=== PATIENT | female | born 1955 | race Caucasian/White ===

== ENCOUNTER 2020-12-22 14:38 | Outpatient (REF) | payer MEDICARE, MEDICAID, SELFPAY ==
[2020-12-22 15:34] LABS: MANUAL DIFF FLAG NO
[2020-12-22 15:39] LABS: Basophils Percent Auto 0.4 % (0-2); Eosinophils Absolute Auto 0.2 X10*3/uL (0.0-0.4); Hemoglobin 15.6 g/dl (12.0-16.0); Imm Gran Abs Auto 0.01 X10*3/uL (0.00-0.03); Imm Gran Pct Auto 0.2 % (0.0-0.4); Lymphocytes Absolute Auto 1.5 X10*3/uL (1.2-4.9); Lymphocytes Percent Auto 27.4 % (20-40); Mean Corpuscular HGB Conc 32.5 g/dl (31.0-35.0); Mean Corpuscular Hemoglobin 33.1 pg (27.0-33.0); Mean Corpuscular Volume 101.9 fL (80-98); Mean Platelet Volume 9.2 fL (9.4-12.3); Monocytes Absolute Auto 0.7 X10*3/uL (0.1-1.2); Monocytes Percent Auto 11.6 % (2-11); Neutrophils Absolute Auto 3.2 X10*3/uL (2.0-8.3); Neutrophils Percent Auto 57.4 % (45-73); Platelet Count 264 X10*3/uL (160-400); Red Blood Count 4.71 X10*6/uL (4.20-5.50); Red Cell Distribution Width 11.8 % (11.0-16.0); White Blood Count 5.6 X10*3/uL (4.8-10.8)
[2020-12-22 16:03] LABS: Alanine Aminotransferase 18 U/L (0-31); Albumin Level 4.4 g/dL (3.5-5.0); Alkaline Phosphatase 67 U/L (39-117); Aspartate Amino Transferase 19 U/L (5-31); Bilirubin Total 0.4 mg/dL (0.0-1.0); Blood Urea Nitrogen 16 mg/dL (9-16); Calcium 9.6 mg/dL (8.4-10.2); Estimated Glomerular Filt Rate > 60; Glucose Random 106 mg/dL (60-115); Total Protein 6.9 g/dL (6.5-8.0)
[2020-12-22 16:18] LABS: Anion Gap 12 (12-20); Carbon Dioxide 34 mmol/L (22-29); Chloride 99 mmol/L (96-108); Potassium 4.3 mmol/L (3.3-5.1); Sodium 141 mmol/L (135-145)
== END 2020-12-22 14:39 | disposition home or self-care (01) ==
LOC: HO.LAB 14:38
PROVIDERS: PCP Internal Medicine; Visit Provider Internal Medicine
DX: J44.9 Chronic obstructive pulmonary disease, unspecified (principal); I10 Essential (primary) hypertension; E78.00 Pure hypercholesterolemia, unspecified
CPT/HCPCS: 36415; 80053; 85025

== ENCOUNTER 2022-01-07 14:15 | Outpatient (REF) | payer MEDICARE, MEDICAID, SELFPAY ==
--- NOTE | ~2022-01-07 | XR_ITS ---
EXAMINATION: XR LUMBOSACRAL SPINE CLINICAL INFORMATION: Back pain COMPARISON: CT abdomen and pelvis 03/13/2020, radiographs lumbar spine 04/09/2018 TECHNIQUE: Three views of the lumbosacral spine. FINDINGS: There is prominent levocurvature lumbar spine with multilevel degenerative disc changes similar to prior exams. There is disc narrowing at all 5 levels with associated endplate sclerosis and vertebral spurring. There is no anterior spondylolisthesis or retrolisthesis. No vertebral compression or destructive process. There is variable facet degeneration again seen throughout the lumbar spine. XR/XR lumbar spine 2-3V IMPRESSION: Multilevel degenerative disc and degenerative facet changes with prominent levocurvature similar to prior exams. No vertebral compression or destructive process.
[2022-01-07 15:01] LABS: C Reactive Protein 0.23 mg/dL (< or = 0.50)
[2022-01-07 15:25] LABS: T4 Thyroxine 6.1 ug/dL (4.5-12.0)
[2022-01-07 15:48] LABS: Folate > 20.0 ng/mL (> or = 4.0); Vitamin B12 324 pg/mL (200-900)
== END 2022-01-07 14:16 | disposition home or self-care (01) ==
LOC: HO.LAB 14:15
PROVIDERS: PCP Internal Medicine; Visit Provider Internal Medicine
DX: M54.9 Dorsalgia, unspecified (principal); J44.9 Chronic obstructive pulmonary disease, unspecified; R26.81 Unsteadiness on feet
CPT/HCPCS: 36415; 72100; 82607; 82746; 84436; 86140

== ENCOUNTER 2022-05-14 15:43 | Outpatient (REF) | payer MEDICARE, MEDICAID, SELFPAY ==
--- NOTE | ~2022-05-14 | XR_ITS ---
EXAMINATION: XR CERVICAL SPINE CLINICAL INFORMATION: Neck pain COMPARISON: None TECHNIQUE: 7 views of the cervical spine FINDINGS: No acute visible fracture or dislocation. Straightening of normal cervical curvature which may be secondary to patient motion first and most. Slight levocurvature along the upper thoracic spine. Multilevel neuroforaminal narrowing. Moderate multilevel degenerative changes with disc space narrowing, endplate sclerosis, osteophyte formation, and facet arthropathy. Vertebral body heights and disc spaces are maintained. Prevertebral soft tissues are unremarkable. Posterior elements are intact. Paraspinal soft tissues are unremarkable. Visualized dens is intact. Lateral masses are symmetric. Utilized portions of the upper chest are unremarkable. XR/XR cervical spine min 6V IMPRESSION: 1. No acute visible fracture or dislocation. 2. Straightening of normal cervical curvature which may be secondary to patient motion first and most. 3. Slight levocurvature along the upper thoracic spine. 4. Multilevel neuroforaminal narrowing. 5. Moderate multilevel degenerative changes.
[2022-05-14 15:55] LABS: MANUAL DIFF FLAG NO
[2022-05-14 16:10] LABS: Basophils Percent Auto 0.3 % (0-2); Eosinophils Absolute Auto 0.1 X10*3/uL (0.0-0.4); Eosinophils Percent Auto 1.5 % (0-4); Hematocrit 48.2 % (37.0-47.0); Hemoglobin 15.7 g/dl (12.0-16.0); Imm Gran Abs Auto 0.02 X10*3/uL (0.00-0.03); Imm Gran Pct Auto 0.3 % (0.0-0.4); Lymphocytes Absolute Auto 1.7 X10*3/uL (1.2-4.9); Lymphocytes Percent Auto 27.1 % (20-40); Mean Corpuscular HGB Conc 32.6 g/dl (31.0-35.0); Mean Corpuscular Hemoglobin 33.1 pg (27.0-33.0); Mean Corpuscular Volume 101.7 fL (80.0-98.0); Monocytes Absolute Auto 0.7 X10*3/uL (0.1-1.2); Monocytes Percent Auto 11.2 % (2-11); Neutrophils Absolute Auto 3.6 x10*3/uL (2.0-8.3); Neutrophils Percent Auto 59.6 % (45-73); Platelet Count 251 X10*3/uL (160-400); Red Blood Count 4.74 X10*6/uL (4.20-5.50); Red Cell Distribution Width 11.9 % (11.0-16.0); White Blood Count 6.1 X10*3/uL (4.8-10.8)
[2022-05-14 16:38] LABS: Alanine Aminotransferase 17 U/L (0-31); Albumin Level 4.2 g/dL (3.5-5.0); Alkaline Phosphatase 66 U/L (39-117); Anion Gap 12 (12-20); Aspartate Amino Transferase 20 U/L (5-31); Bilirubin Total 0.3 mg/dL (0.0-1.0); Blood Urea Nitrogen 15 mg/dL (9-16); Calcium 9.3 mg/dL (8.4-10.2); Carbon Dioxide 30 mmol/L (22-29); Chloride 102 mmol/L (96-108); Cholesterol 242 mg/dL; Estimated Glomerular Filt Rate > 60; Glucose Random 102 mg/dL (60-115); Potassium 4.6 mmol/L (3.3-5.1); Sodium 139 mmol/L (135-145); Total Protein 6.5 g/dL (6.5-8.0)
== END 2022-05-14 15:44 | disposition home or self-care (01) ==
LOC: HO.XRAY 15:43
PROVIDERS: PCP Internal Medicine; Visit Provider Internal Medicine
DX: J44.9 Chronic obstructive pulmonary disease, unspecified (principal); M19.90 Unspecified osteoarthritis, unspecified site; I10 Essential (primary) hypertension; E78.00 Pure hypercholesterolemia, unspecified
CPT/HCPCS: 36415; 72052; 80053; 82465; 85025

== ENCOUNTER 2022-09-09 15:20 | Outpatient (REF) | payer MEDICARE, MEDICAID, SELFPAY ==
--- NOTE | ~2022-09-09 | XR_ITS ---
EXAMINATION: XR FOREARM, LEFT CLINICAL INFORMATION: Pain. COMPARISON: None TECHNIQUE: AP and lateral views of the left forearm were obtained. FINDINGS: The bones and soft tissues are normal. No fracture. Imaged portions of the elbow and wrist are unremarkable. XR/XR forearm LT 2V IMPRESSION: Normal left forearm.
== END 2022-09-09 15:21 | disposition home or self-care (01) ==
LOC: HO.XRAY 15:20
PROVIDERS: PCP Internal Medicine; Visit Provider Internal Medicine
DX: M79.632 Pain in left forearm (principal)
CPT/HCPCS: 73090

== ENCOUNTER 2023-05-20 07:41 | Outpatient (REF) | payer MEDICARE, MEDICAID, SELFPAY ==
[2023-05-20 08:00] LABS: MANUAL DIFF FLAG NO
[2023-05-20 08:43] LABS: Basophils Absolute Auto 0.1 X10*3/uL (0.0-0.2); Basophils Percent Auto 0.8 % (0-2); Eosinophils Absolute Auto 0.2 X10*3/uL (0.0-0.4); Eosinophils Percent Auto 2.8 % (0-4); Hematocrit 49.9 % (37.0-47.0); Hemoglobin 15.8 g/dl (12.0-16.0); Imm Gran Abs Auto 0.01 X10*3/uL (0.00-0.03); Imm Gran Pct Auto 0.2 % (0.0-0.4); Lymphocytes Absolute Auto 1.8 X10*3/uL (1.2-4.9); Lymphocytes Percent Auto 28.7 % (20-40); Mean Corpuscular HGB Conc 31.7 g/dl (31.0-35.0); Mean Corpuscular Hemoglobin 32.8 pg (27.0-33.0); Mean Corpuscular Volume 103.7 fL (80.0-98.0); Mean Platelet Volume 9.2 fL (9.4-12.3); Monocytes Absolute Auto 0.5 X10*3/uL (0.1-1.2); Neutrophils Absolute Auto 3.8 x10*3/uL (2.0-8.3); Neutrophils Percent Auto 59.5 % (45-73); Platelet Count 266 X10*3/uL (160-400); Red Blood Count 4.81 X10*6/uL (4.20-5.50); Red Cell Distribution Width 11.9 % (11.0-16.0); White Blood Count 6.4 X10*3/uL (4.8-10.8)
[2023-05-20 09:16] LABS: Alanine Aminotransferase 17 U/L (0-31); Albumin Level 4.5 g/dL (3.5-5.0); Alkaline Phosphatase 61 U/L (39-117); Anion Gap 14 (12-20); Aspartate Amino Transferase 21 U/L (5-31); Bilirubin Total 0.5 mg/dL (0.0-1.0); Blood Urea Nitrogen 21 mg/dL (9-16); Calcium 9.8 mg/dL (8.4-10.2); Carbon Dioxide 35 mmol/L (22-29); Chloride 97 mmol/L (96-108); Cholesterol 250 mg/dL; Estimated Glomerular Filt Rate > 60; Glucose Fasting 95 mg/dL (60-99); HDL Cholesterol 70 mg/dL; LDL Cholesterol Calculated 164 mg/dl; Sodium 142 mmol/L (135-145); Total Protein 7.2 g/dL (6.5-8.0); Triglycerides 83 mg/dL
== END 2023-05-20 07:42 | disposition home or self-care (01) ==
LOC: HO.LAB 07:41
PROVIDERS: PCP Internal Medicine; Visit Provider Internal Medicine
DX: J44.9 Chronic obstructive pulmonary disease, unspecified (principal); E78.00 Pure hypercholesterolemia, unspecified; M19.90 Unspecified osteoarthritis, unspecified site
CPT/HCPCS: 36415; 80053; 80061; 85025

== ENCOUNTER 2023-05-27 15:53 | Outpatient (REF) | payer MEDICARE, MEDICAID, SELFPAY ==
--- NOTE | ~2023-05-27 | XR_ITS ---
EXAMINATION: XR HIP, LEFT CLINICAL INFORMATION: Pain. COMPARISON: None available. TECHNIQUE: AP and frog-leg lateral views of the left hip. FINDINGS: No fracture. Alignment is anatomic. Hip joint space is maintained. Soft tissues are unremarkable. XR/XR hip LT min 2V IMPRESSION: Normal left hip.
== END 2023-05-27 15:54 | disposition home or self-care (01) ==
LOC: HO.XRAY 15:53
PROVIDERS: PCP Internal Medicine; Visit Provider Internal Medicine
DX: M25.552 Pain in left hip (principal)
CPT/HCPCS: 73502

== ENCOUNTER 2024-02-27 11:28 | Outpatient (REF) | payer MEDICARE, MEDICAID, SELFPAY ==
[2024-02-27 12:58] LABS: MANUAL DIFF FLAG NO
[2024-02-27 13:01] LABS: Basophils Percent Auto 0.6 % (0-2); Eosinophils Absolute Auto 0.1 X10*3/uL (0.0-0.4); Eosinophils Percent Auto 1.3 % (0-4); Hematocrit 47.5 % (37.0-47.0); Hemoglobin 15.6 g/dl (12.0-16.0); Imm Gran Abs Auto 0.01 X10*3/uL (0.00-0.03); Imm Gran Pct Auto 0.2 % (0.0-0.4); Lymphocytes Absolute Auto 1.4 X10*3/uL (1.2-4.9); Lymphocytes Percent Auto 22.6 % (20-40); Mean Corpuscular HGB Conc 32.8 g/dl (31.0-35.0); Mean Corpuscular Hemoglobin 34.2 pg (27.0-33.0); Mean Corpuscular Volume 104.2 fL (80.0-98.0); Mean Platelet Volume 9.3 fL (9.4-12.3); Monocytes Absolute Auto 0.6 X10*3/uL (0.1-1.2); Monocytes Percent Auto 9.8 % (2-11); Neutrophils Absolute Auto 4.1 x10*3/uL (2.0-8.3); Neutrophils Percent Auto 65.5 % (45-73); Platelet Count 249 X10*3/uL (160-400); Red Blood Count 4.56 X10*6/uL (4.20-5.50); Red Cell Distribution Width 11.9 % (11.0-16.0); White Blood Count 6.2 X10*3/uL (4.8-10.8)
[2024-02-27 13:23] LABS: Alanine Aminotransferase 18 U/L (0-31); Albumin Level 4.1 g/dL (3.5-5.0); Alkaline Phosphatase 60 U/L (39-117); Anion Gap 8 (12-20); Aspartate Amino Transferase 19 U/L (5-31); Bilirubin Total 0.5 mg/dL (0.0-1.0); Blood Urea Nitrogen 14 mg/dL (9-16); Calcium 9.5 mg/dL (8.4-10.2); Carbon Dioxide 39 mmol/L (22-29); Chloride 99 mmol/L (96-108); Cholesterol 237 mg/dL (<200); Estimated Glomerular Filt Rate > 60; Glucose Fasting 107 mg/dL (60-99); HDL Cholesterol 72 mg/dL (>40); LDL Cholesterol Calculated 153 mg/dL (<100); Potassium 3.9 mmol/L (3.3-5.1); Sodium 142 mmol/L (135-145); Total Protein 6.6 g/dL (6.5-8.0); Triglycerides 64 mg/dL (<150)
[2024-02-27 13:38] LABS: Vitamin D 25-OH Total 57.1 ng/mL (>30)
== END 2024-02-27 11:29 | disposition home or self-care (01) ==
LOC: HO.10HDL 11:28
PROVIDERS: Visit Provider Internal Medicine
DX: J44.9 Chronic obstructive pulmonary disease, unspecified (principal); E78.00 Pure hypercholesterolemia, unspecified; M81.0 Age-related osteoporosis without current pathological fracture
CPT/HCPCS: 36415; 80053; 80061; 82306; 85025

== ENCOUNTER 2024-09-02 15:27 | Outpatient (REF) | payer MEDICARE, MEDICAID, SELFPAY ==
--- NOTE | ~2024-09-02 | XR_ITS ---
EXAMINATION: XR CHEST CLINICAL INFORMATION: Pneumonia evaluation, cough COMPARISON: October 2019. TECHNIQUE: 2 views of the chest were obtained. FINDINGS: No airspace consolidation or pneumothorax seen. Pleural surfaces appear to be clear. Hilar regions and pulmonary vascularity appear stable. Minimal posterior sulcus linear atelectatic changes. Emphysematous change again noted. Extensive thoracic dextroscoliosis again observed. XR/XR chest 2V IMPRESSION: No dominant consolidations. Minimal posterior sulcus linear atelectatic change. Electronically signed by: Dat Jenkins MD 09/02/2024 04:45 PM EDT
[2024-09-02 19:16] LABS: Influenza A PCR NEGATIVE (Negative); Influenza B PCR NEGATIVE (Negative); Resp Syncy Virus RNA Qual PCR NEGATIVE (Negative); SARS COV2 PCR INHOUSE NEGATIVE (Negative)
== END 2024-09-02 15:28 | disposition home or self-care (01) ==
LOC: HO.XRAY 15:27
PROVIDERS: PCP Internal Medicine; Visit Provider Internal Medicine
DX: Z11.52 Encounter for screening for COVID-19 (principal); R05.9 Cough, unspecified; J44.9 Chronic obstructive pulmonary disease, unspecified; N18.9 Chronic kidney disease, unspecified
CPT/HCPCS: 0241U; 71046

== ENCOUNTER 2024-11-09 13:52 | Outpatient (REF) | payer MEDICARE, MEDICAID, SELFPAY ==
--- NOTE | ~2024-11-09 | MM_ITS ---
EXAMINATION: Dual-Energy X-ray Absorptiometry - Bone Density Study HISTORY: Estrogen deficiency TECHNIQUE: Tailwind Dual energy absorptiometry (DEXA) of the lumbar spine, total left hip, and femoral neck was performed. COMPARISON: Comparison is made with the prior examination dated 05/26/2018. FINDINGS: The bone mineral density of the lumbar spine is 1.278 with a T-score of 0.8, and a Z-score of 3.0. This represents a BMD change of 4.5% compared to the prior exam. This is statistically significant. The bone mineral density of the left total hip is 0.731 with a T-score of -2.2, and a Z-score of -0.4. This represents BMD change of -12.2% compared to the prior exam. This is statistically significant. The bone mineral density of the left femoral neck is 0.668 with a T-score of -2.7, and a Z-score of -0.6. This represents BMD change of -4.2% compared to the prior exam. FRACTURE RISK: The FRAX index suggests a ten year probability of major osteoporotic fracture of 15.7%, and of hip fracture 6.8%. MM/XR DEXA axial skeleton IMPRESSION: Based on bone mineral density, and according to World Health Organization (WHO) criteria, the diagnosis is consistent with osteoporosis. All bone density values are in grams per centimeter squared. At this facility, the least significant change in BMD with 95% confidence is 0.022 at the lumbar spine, 0.027 at the hip, and 0.023 at the distal 1/3 radius. Electronically signed by: Jimbo Demarco MD 11/10/2024 09:51 AM EST
== END 2024-11-09 13:53 | disposition home or self-care (01) ==
LOC: HO.MAMMO 13:52
PROVIDERS: PCP Internal Medicine; Visit Provider Internal Medicine
DX: Z13.820 Encounter for screening for osteoporosis (principal); Z78.0 Asymptomatic menopausal state
CPT/HCPCS: 77080

== ENCOUNTER → 2024-11-09 14:00 | Outpatient (BNV) | payer MEDICARE, MEDICAID, SELFPAY | PROVIDERS: PCP Internal Medicine; Visit Provider Radiology Diagnostic Radiology | DX: M81.0 Age-related osteoporosis without current pathological fracture (principal) | CPT/HCPCS: 77085 ==

== ENCOUNTER 2024-12-15 06:49 | Emergency (ER) | payer MEDICARE, MEDICAID, SELFPAY ==
--- NOTE | ~2024-12-15 | XR_ITS ---
EXAMINATION: XR RIBS, LEFT CLINICAL INFORMATION: pain COMPARISON: Chest x-ray dating 09/02/2024, and dating back to 12/11/2016 TECHNIQUE: PA chest, and 3 views left ribs. FINDINGS: The cardiac, hilar, and mediastinal contours are normal. There is aortic mural calcification. The lungs are mildly hyper aerated, with mild biapical scarring. There is a right mid to lower lung peripherally based focal opacity measuring 1.3 cm, stable from prior exams dating back to 2019. This is likely scarring. Lungs are otherwise clear. Dedicated rib views demonstrate a subtle cortical buckling of the anterolateral left fifth rib. This is age-indeterminate by appearance. There is a moderate to severe right convex thoracic scoliosis. There is degenerative spondylosis. XR/XR ribs LT min 3V w CXR1V IMPRESSION: 1. Subtle cortical buckling of the anterior right fifth rib, probable fracture of indeterminant age appearance. No additional rib fractures seen. 2. No active lung disease. COPD with chronic changes. Electronically signed by: Jet Jackson MD 12/15/2024 08:15 AM [facility]
[2024-12-15 07:00] VITALS: BP 173/89; PULSE 95; RESP 20; TEMP 36.7; O2SAT 93; BMI 20.8
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
[2024-12-15] MEDS: Acetaminophen 325 MG TABLET 650 MG PO (13:53)
[2024-12-15] MEDS: Lidocaine 4 % Patch ADH..PATCH 1 PATCH TRANSDERMA (13:53)
[2024-12-15 14:05] VITALS: BP 173/89; PULSE 95; RESP 20; TEMP 36.7; O2SAT 93
== END 2024-12-15 14:05 | disposition home or self-care (01) ==
PROVIDERS: Emergency Provider Emergency Medicine; PCP Internal Medicine
DX: S22.42XA Multiple fractures of ribs, left side, initial encounter for closed fracture (principal); R07.89 Other chest pain; J44.9 Chronic obstructive pulmonary disease, unspecified; V43.52XA Car driver injured in collision with other type car in traffic accident, initial encounter; Y93.89 Activity, other specified; Y92.488 Other paved roadways as the place of occurrence of the external cause; Y99.8 Other external cause status; F17.210 Nicotine dependence, cigarettes, uncomplicated
CPT/HCPCS: 71101; 94010; 99283

== ENCOUNTER → 2024-12-15 07:05 | Outpatient (BNV) | payer MEDICARE, MEDICAID, SELFPAY | PROVIDERS: PCP Internal Medicine; Visit Provider Radiology Diagnostic Radiology | DX: G89.11 Acute pain due to trauma (principal); Z04.1 Encounter for examination and observation following transport accident | CPT/HCPCS: 71101 ==

== ENCOUNTER 2024-12-23 14:46 | Emergency (ER) | payer OTHER, MEDICARE, MEDICAID, SELFPAY ==
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
[2024-12-23 15:38] VITALS: BP 174/72; PULSE 97; RESP 16; TEMP 36.9; O2SAT 89; BMI 20.8
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
== END 2024-12-23 19:54 | disposition left against medical advice (07) ==
PROVIDERS: Emergency Provider Emergency Medicine; PCP Internal Medicine
DX: M25.562 Pain in left knee (principal)
CPT/HCPCS: 73564; 99281; 99283

== ENCOUNTER → 2024-12-23 15:40 | Outpatient (BNV) | payer MEDICARE, MEDICAID, SELFPAY | PROVIDERS: PCP Internal Medicine; Visit Provider Radiology Diagnostic Radiology | DX: M25.562 Pain in left knee (principal); V89.2XXA Person injured in unspecified motor-vehicle accident, traffic, initial encounter | CPT/HCPCS: 73564 ==

== ENCOUNTER 2025-03-25 14:23 | Outpatient (AMB) | payer OTHER, SELFPAY ==
--- NOTE | 2025-03-25 14:27 | MHC.PC.OV ---
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 She also has chronic low back pain related to scoliosis which causes significant issues with ambulation. She has weakness in the legs and has fallen several times. She requires the use of a walker. She is also on 2 L supplemental O2 as needed for shortness of breath. Oximetry in the office today is 90%. She is also requesting shower bars. She is quite hypertensive in the office today at 162/100 and on recheck 160/94. She does have a history of elevated blood pressures though denies any history of hypertension. She reports that previously her blood pressure is were 130 systolic. We did discuss the risks of uncontrolled blood pressures including stroke as well as other cardiovascular disease. She has been following with pulmonology and incruse ellipta and albuterol. No recent exacerbation. ROS: General: No fevers, malaise, unintentional weight loss HEENT: No blurred vision, diplopia. No sore throat, nasal congestion, rhinorrhea, sinus pain, ear pain Cardiovascular: No chest pain, palpitations, or leg edema Respiratory: See HPI MSK: See HPI Neuro: No headaches, paresthesias. See HPI Skin: No rashes or lesions Exam: Constitutional - Awake and Alert, No apparent distress Eyes - PERRLA, EOMI Cardiovascular - S1S2, RRR, No edema Respiratory - Normal lung expansion, Normal respiratory effort, No respiratory distress, CTA bilaterally Extremities - no calf tenderness bilaterally, no swelling Skin - Warm/Dry Neurological - Alert & oriented x3 Psychological - Appropriate affect [facility] Medical History (Updated 03/25/25 @ 17:39 by PREET Mclean) Chronic respiratory failure COPD (chronic obstructive pulmonary disease) HTN (hypertension) HLD (hyperlipidemia) Questionnaire PHQ-9 Over the last 2 weeks, how often have you been bothered by any of the following problems? 1. Little interest or pleasure in doing things: not at all 2. Feeling down, depressed, or hopeless: not at all 3. Trouble falling or staying asleep, or sleeping too much: not at all 4. Feeling tired or having little energy: not at all 5. Poor appetite or overeating: not at all 6. Feeling bad about yourself - or that you are a failure or have let yourself or your family down: not at all 7. Trouble concentrating on things, such as reading the newspaper or watching television: not at all 8. Moving or speaking so slowly that other people could have noticed. Or the opposite - being so fidgety or restless that you have been moving around a lot more than usual: not at all 9. Thoughts that you would be better off or of hurting yourself in some way: not at all Total score: 0 Source: Developed by Drs. Jimbo Shearer, Ruby Gaffney, Rey Romero and colleagues, with an educational rosario from [employer] Thrive Questionnaire I am a: Patient What is your living situation today?: I have a steady place to live Within the past 12 months, did the food you bought not last and you didn't have the money to get more?: Never true Within the past 12 months, did you worry whether your food would run out before you got money to buy more?: Never true Do you have trouble paying for medicines?: No Do you have trouble getting transportation to medical appointments?: No Do you have trouble paying your heating and electricity bill?: No Do you have trouble taking care of your child, family member or friend?: No Do you have trouble with day-to-day activities such as bathing, preparing meals, shopping, managing finances, etc.?: No Are you currently unemployed and looking for a job?: No Are you interested in more education?: No Please select the resources that you would like help with: None THRIVE Score: 0 MILADIS-7 AMB Questionnaire MILADIS-7 Feeling nervous, anxious, or on edge: 0 = Not at all Not being able to stop or control worryin = Not at all Worrying too much about different things: 0 = Not at all Trouble relaxin = Not at all Being so restless that it is hard to sit still: 0 = Not at all Becoming easily annoyed or irritable: 0 = Not at all Feeling afraid as if something awful might happen: 0 = Not at all Total MILADIS-7 score (0-4 normal; 5-9 mild; 10-14 moderate; 15-21 severe): 0 Source: Developed by Drs. Jimbo Shearer, Ruby Gaffney, Rey Romero and colleagues, with an educational rosario from [employer] Physical exam (Primary Care) Vital Signs: Last Vital Signs Temp 97.8 F 03/25/25 14:31 Pulse 96 03/25/25 14:31 Resp 16 03/25/25 14:31 BP 162/100 H 03/25/25 14:31 Pulse Ox 90 L 03/25/25 14:31 Oxygen Delivery Method Room Air 03/25/25 14:31 BMI result Body Mass Index 21.9 PHQ-9: PHQ-9 Score PHQ-9: Total score 0 03/25/25 15:36 Coding Level of Care Code New Pt Level 4 (05648) Complex EM visit Add On G2211 Diagnoses Scoliosis M41.9 Chronic respiratory failure J96.10 COPD (chronic obstructive pulmonary disease) J44.9 HTN (hypertension) I10 HLD (hyperlipidemia) E78.5 Assessment & Plan Assessment & Plan (1) Scoliosis: Code(s): M41.9 - Scoliosis, unspecified Category: Medical Plan: Resulting in chronic low back pain and gait instability putting her at risk for falls. Orders placed for walker and shower bars. (2) Chronic respiratory failure: Code(s): J96.10 - Chronic respiratory failure, unspecified whether with hypoxia or hypercapnia Category: Medical Plan: Chronic hypoxemic hypercapnic respiratory failure. She will continue using 2 L supplemental O2 as needed for shortness of breath. Oximetry stable in the office at 90% today, goal 88-92%. Orders placed for supplemental O2 (3) COPD (chronic obstructive pulmonary disease): Code(s): J44.9 - Chronic obstructive pulmonary disease, unspecified Category: Medical Plan: Stable. Continue using maintenance inhalers and albuterol only as needed for shortness (4) HTN (hypertension): Code(s): I10 - Essential (primary) hypertension Category: Medical Plan: Uncontrolled with initial blood pressure 162/100 and repeat 160/94. We did discuss the risks of uncontrolled blood pressure including cardiovascular disease resulting in [place] or CVA among others. Patient refuses antihypertensive at this time. States she will monitor her blood pressures at home, advised patient to call the office for blood pressure is consistently elevated over 140/90. (5) HLD (hyperlipidemia): Code(s): E78.5 - Hyperlipidemia, unspecified Category: Medical Plan: Lipid panel ordered. She is not interested in statins as she reports that she has heard that they are not good. We did discuss evidence behind statin medications and their ability to reduce cardiovascular risk. Plan Follow-up in 6 months. Labs to be completed today. Continue calcium and vitamin-D for management of osteoporosis as well as weight-bearing exercise. She is not interested in Fosamax Orders: Orders Basic Metabolic Panel Today E78.5 - Hyperlipidemia, unspecified, I10 - Essential (primary) hypertension, J44.9 - Chronic obstructive pulmonary disease, unspecified, J96.10 - Chronic respiratory failure, unspecified whether with hypoxia or hypercapnia Complete Blood Count Auto Diff Today E78.5 - Hyperlipidemia, unspecified, I10 - Essential (primary) hypertension, J44.9 - Chronic obstructive pulmonary disease, unspecified, J96.10 - Chronic respiratory failure, unspecified whether with hypoxia or hypercapnia Lipid Panel Today E78.5 - Hyperlipidemia, unspecified, I10 - Essential (primary) hypertension, J44.9 - Chronic obstructive pulmonary disease, unspecified, J96.10 - Chronic respiratory failure, unspecified whether with hypoxia or hypercapnia Liver Panel Today E78.5 - Hyperlipidemia, unspecified, I10 - Essential (primary) hypertension, J44.9 - Chronic obstructive pulmonary disease, unspecified, J96.10 - Chronic respiratory failure, unspecified whether with hypoxia or hypercapnia Hemoglobin A1c Today E78.5 - Hyperlipidemia, unspecified, I10 - Essential (primary) hypertension, J44.9 - Chronic obstructive pulmonary disease, unspecified, J96.10 - Chronic respiratory failure, unspecified whether with hypoxia or hypercapnia TSH reflex Free T4 Today E78.5 - Hyperlipidemia, unspecified, I10 - Essential (primary) hypertension, J44.9 - Chronic obstructive pulmonary disease, unspecified, J96.10 - Chronic respiratory failure, unspecified whether with hypoxia or hypercapnia Medications: New Oxygen Home Use As directed 2L prn for shortness of breath with concentrator Requires larger tank with longer duration Also needs battery powered portable tank 1 ea 0RF Discontinued cyclobenzaprine Discontinued Reason: Patient Completed Course 7.5 mg PO BEDTIME PRN 14 tabs 0RF muscle spasm lidocaine 4% (AsperFlex (lidocaine)) Discontinued Reason: Patient Completed Course 1 patch topical DAILY PRN 5 ea 0RF pain
[2025-03-25 14:31] VITALS: BP 162/100; PULSE 96; RESP 16; TEMP 36.6; O2SAT 90; BMI 21.9
== END 2025-03-25 15:17 | disposition home or self-care (01) ==
LOC: HO.HMCHD 14:24
PROVIDERS: PCP Internal Medicine; Visit Provider Physician Assistant
DX: M41.9 Scoliosis, unspecified (principal); J96.10 Chronic respiratory failure, unspecified whether with hypoxia or hypercapnia; J44.9 Chronic obstructive pulmonary disease, unspecified; I10 Essential (primary) hypertension; E78.5 Hyperlipidemia, unspecified

== ENCOUNTER → 2025-03-25 14:23 | Outpatient (BNVA) | payer OTHER, SELFPAY | PROVIDERS: PCP Internal Medicine; Visit Provider Physician Assistant ==

== ENCOUNTER 2025-05-12 12:11 | Outpatient (REF) | payer MEDICARE, MEDICAID, SELFPAY ==
[2025-05-12 12:21] LABS: MANUAL DIFF FLAG NO
[2025-05-12 12:37] LABS: Hematocrit 43.8 % (37.0-47.0); Hemoglobin 14.3 g/dl (12.0-16.0); Imm Gran Abs Auto 0.02 X10*3/uL (0.00-0.03); Imm Gran Pct Auto 0.4 % (0.0-0.4); Lymphocytes Absolute Auto 1.1 X10*3/uL (1.2-4.9); Mean Corpuscular HGB Conc 32.6 g/dl (31.0-35.0); Mean Corpuscular Hemoglobin 33.9 pg (27.0-33.0); Mean Corpuscular Volume 103.8 fL (80.0-98.0); NRBC Abs Auto 0.000 X10*3/uL (0.0-0.012); NRBC Pct Auto 0.0 /100WBC (0.0-0.2); Platelet Count 219 X10*3/uL (160-400); Red Blood Count 4.22 X10*6/uL (4.20-5.50); White Blood Count 5.7 X10*3/uL (4.8-10.8)
[2025-05-12 13:02] LABS: Hemoglobin A1C 124.5644 umol/L; Total Hemoglobin (HGBA1C) 3766.0106 umol/L
[2025-05-12 13:13] LABS: Alanine Aminotransferase 14 U/L (0-31); Albumin Level 4.3 g/dL (3.5-5.0); Alkaline Phosphatase 55 U/L (39-117); Anion Gap 10 (12-20); Aspartate Amino Transferase 21 U/L (5-31); Blood Urea Nitrogen 15 mg/dL (9-16); Calcium 9.3 mg/dL (8.4-10.2); Carbon Dioxide 37 mmol/L (22-29); Chloride 97 mmol/L (96-108); Cholesterol 284 mg/dL (<200); Estimated Glomerular Filt Rate > 60; HDL Cholesterol 85 mg/dL (>40); Potassium 4.4 mmol/L (3.3-5.1); Sodium 140 mmol/L (135-145); Total Protein 6.6 g/dL (6.5-8.0); Triglycerides 108 mg/dL (<150)
== END 2025-05-12 12:12 | disposition home or self-care (01) ==
LOC: HO.LAB 12:11
PROVIDERS: PCP Internal Medicine; Visit Provider Physician Assistant
DX: I10 Essential (primary) hypertension (principal); E78.5 Hyperlipidemia, unspecified; J44.9 Chronic obstructive pulmonary disease, unspecified; J96.10 Chronic respiratory failure, unspecified whether with hypoxia or hypercapnia
CPT/HCPCS: 36415; 80048; 80061; 80076; 83036; 84443; 85025

== ENCOUNTER 2025-07-22 14:01 | Outpatient (AMB) | payer OTHER, MEDICARE, SELFPAY ==
--- NOTE | 2025-07-22 14:05 | MHC.PC.OV ---
Vital Signs 07/22/25 14:14 07/22/25 14:34 Height 5 ft 1 in Weight 54.885 kg BMI 22.9 BP 148/76 H 148/84 H Respiration 18 Pulse 72 Pulse Source Pulse Oximeter Temp 97.5 F Temp Source Temporal Artery Scan Pulse Oximetry (%) 97 Oxygen Delivery Method Room Air Intake Visit Reasons: 4 Month F/U Grain Spouter Required: No Accompanied by: Self / Same As Patient Allergies Sulfa (Sulfonamide Antibiotics) Allergy (Verified 07/22/25 14:05) Unknown Medication List - Last Reconciled 07/22/25 by PREET Mclean albuterol sulfate 2.5 mg (3 mL) continuous nebulization Q6-8H PRN [[facility] PO] atropine 1% 1 drp ophthalmic (eye) BID cholecalciferol (vitamin D3) 50 mcg PO DAILY Grab bar Requires use of grab bar in shower as well as bathtub Oxygen Home Use As directed 2L prn for shortness of breath with concentrator Requires larger tank with longer duration Also needs battery powered portable tank Oxygen Home Use battery powered portable tank prednisolone acetate 1% 1 drp ophthalmic (eye) QID umeclidinium 62.5 mcg/actuation (Incruse Ellipta) 1 inh inhalation DAILY Ventolin HFA 90 mcg/actuation (albuterol sulfate) 2 puffs inhalation Q4-6H PRN NS walker As directed HPI HPI Comments History of Present Illness Details 69-year-old female with history of COPD with chronic hypoxemic hypercapnic respiratory failure, hypertension, hyperlipidemia, osteoporosis presents to the office today for management of chronic conditions. Hypertension-blood pressure in the office initially 148/76, repeat 148/84. Not on antihypertensives. Counseled on the importance of strict blood pressure management for management of cardiovascular risk which is already significantly elevated due to ongoing smoking as well as very high cholesterol levels COPD with chronic hypoxemic hypercapnic respiratory failure-compliant with Incruse, albuterol p.r.n.. 2 L supplemental O2 as needed for shortness of breath oximetry in the office 97%. Increased difficulty breathing with heat. Dr. Tyler. Still smoking several cigarettes a day. Hyperlipidemia-last LDL 178. Discussed at length the importance of reducing cardiovascular risk. Patient continues to decline statin at this time Chronic low back pain/Scoliosis- needs walker with seat due to ongoing pain and dypsnea. Has unsteady gait secondary to severe back curvature Concerns: None other than above ROS: See HPI EXAM: Constitutional - Awake and Alert, No apparent distress Eyes - PERRL Cardiovascular - S1S2, RRR, No edema Respiratory - Normal lung expansion, Normal respiratory effort, No respiratory distress, CTA bilaterally Extremities - no calf tenderness bilaterally, no swelling MSK - severe thoracic/lumbar left-sided curvature with asymmetry of the hips bilaterally Skin - Warm/Dry Neurological - Alert & oriented x3 Psychological - Appropriate affect [facility] Medical History (Updated 07/22/25 @ 15:23 by PREET Mclean) Hypertensive retinopathy Cigarette smoker Chronic respiratory failure COPD (chronic obstructive pulmonary disease) HTN (hypertension) HLD (hyperlipidemia) Physical exam (Primary Care) Vital Signs: Last Vital Signs Temp 97.5 F 07/22/25 14:14 Pulse 72 07/22/25 14:14 Resp 18 07/22/25 14:14 BP 148/84 H 07/22/25 14:34 Pulse Ox 97 07/22/25 14:14 Oxygen Delivery Method Room Air 07/22/25 14:14 BMI result Body Mass Index 22.9 Coding Level of Care Code Est Pt Level 4 (64853) Complex EM visit Add On G2211 Diagnoses HLD (hyperlipidemia) E78.5 HTN (hypertension) I10 COPD (chronic obstructive pulmonary disease) J44.9 Scoliosis M41.9 Cigarette smoker F17.210 Assessment & Plan Assessment & Plan (1) HLD (hyperlipidemia): Code(s): E78.5 - Hyperlipidemia, unspecified Category: Medical Plan: Uncontrolled with LDL of 184. ASCVD risk score greater than 10%. She continues to declines statin medication stating that she would like to work on lifestyle. Discussed that her LDL levels have been significantly elevated dating back at least 5 years. Counseled on cardiovascular risk (2) HTN (hypertension): Code(s): I10 - Essential (primary) hypertension Category: Medical Plan: Continues to remain uncontrolled. She declines antihypertensives at this time. She is counseled on the risk of cardiovascular event including heart attack or stroke as well as the retinopathy that she is reporting diagnosed by her client relationship executive (3) COPD (chronic obstructive pulmonary disease): Code(s): J44.9 - Chronic obstructive pulmonary disease, unspecified Category: Medical Plan: Uncontrolled. Follow-up with pulmonology on the as scheduled. Continue Incruse and albuterol p.r.n.. Strongly advised smoking cessation (4) Scoliosis: Code(s): M41.9 - Scoliosis, unspecified Category: Medical Plan: With chronic back pain as well as asymmetry of the hips which affects gait steadiness. Rollator walker is ordered which patient will greatly benefit from as she also experiences dyspnea with exertion. (5) Cigarette smoker: Code(s): F17.210 - Nicotine dependence, cigarettes, uncomplicated Category: Social Hx Plan Follow-up in the office in 3 months with labs completed prior to visit Orders: Orders Lipid Panel 3 Months E78.5 - Hyperlipidemia, unspecified, I10 - Essential (primary) hypertension, J44.9 - Chronic obstructive pulmonary disease, unspecified Liver Panel 3 Months E78.5 - Hyperlipidemia, unspecified, I10 - Essential (primary) hypertension, J44.9 - Chronic obstructive pulmonary disease, unspecified Basic Metabolic Panel 3 Months E78.5 - Hyperlipidemia, unspecified, I10 - Essential (primary) hypertension, J44.9 - Chronic obstructive pulmonary disease, unspecified Medications: New walker (Ultra-Light Rollator misc) As directed 1 ea 0RF G89.29 - Other chronic pain, M41.9 - Scoliosis, unspecified, M54.9 - Dorsalgia, unspecified, R06.09 - Other forms of dyspnea, R26.81 - Unsteadiness on feet Changed From albuterol sulfate 90 mcg/actuation (Ventolin HFA) 2 puffs inhalation Q4-6H PRN 8.5 grams 1RF shortness of breath or wheezing J44.9 - Chronic obstructive pulmonary disease, unspecified, J96.10 - Chronic respiratory failure, unspecified whether with hypoxia or hypercapnia To Ventolin HFA 90 mcg/actuation (albuterol sulfate) BRand name only 2 puffs inhalation Q4-6H PRN 8 grams 3RF shortness of breath or wheezing NS J44.9 - Chronic obstructive pulmonary disease, unspecified, J96.10 - Chronic respiratory failure, unspecified whether with hypoxia or hypercapnia Refilled albuterol sulfate 2.5 mg (3 mL) continuous nebulization Q6-8H PRN 360 mL 5RF shortness of breath or wheezing J44.9 - Chronic obstructive pulmonary disease, unspecified, J96.10 - Chronic respiratory failure, unspecified whether with hypoxia or hypercapnia umeclidinium 62.5 mcg/actuation (Incruse Ellipta) 1 inh inhalation DAILY 90 ea 3RF E78.5 - Hyperlipidemia, unspecified, I10 - Essential (primary) hypertension, J44.9 - Chronic obstructive pulmonary disease, unspecified
[2025-07-22 14:14] VITALS: BP 148/76; PULSE 72; RESP 18; TEMP 36.4; O2SAT 97; BMI 22.9
[2025-07-22 14:34] VITALS: BP 148/84
== END 2025-07-22 14:50 | disposition home or self-care (01) ==
LOC: HO.HMCHD 14:02
PROVIDERS: PCP Internal Medicine; Visit Provider Physician Assistant
DX: E78.5 Hyperlipidemia, unspecified (principal); I10 Essential (primary) hypertension; J44.9 Chronic obstructive pulmonary disease, unspecified; M41.9 Scoliosis, unspecified; F17.210 Nicotine dependence, cigarettes, uncomplicated

== ENCOUNTER 2025-07-28 09:55 | Outpatient (REF) | payer MEDICARE, MEDICAID, SELFPAY ==
[2025-07-28 11:16] LABS: Venous Blood Gas Refer to POC result
[2025-07-28 11:22] LABS: VBG HCO3 42 mmol/L (22-26); VBG O2 % Saturation 38.0 %
== END 2025-07-28 09:56 | disposition home or self-care (01) ==
LOC: HO.LAB 09:55
PROVIDERS: PCP Internal Medicine; Visit Provider Internal Medicine
DX: J44.9 Chronic obstructive pulmonary disease, unspecified (principal); J96.11 Chronic respiratory failure with hypoxia; F17.210 Nicotine dependence, cigarettes, uncomplicated; Z99.81 Dependence on supplemental oxygen; Z79.899 Other long term (current) drug therapy
CPT/HCPCS: 36415; 82803; 99202

== ENCOUNTER 2025-07-28 09:55 | Outpatient (AMB) | payer MEDICARE, MEDICAID, SELFPAY ==
[2025-07-28 10:07] VITALS: BP 130/72; PULSE 82; O2SAT 96; BMI 22.9
--- NOTE | 2025-07-28 10:07 | MHC.OFFVIS ---
Vital Signs 07/28/25 10:07 Height 5 ft 1 in Weight 121 lb 4.068 oz BMI 22.9 BP 130/72 Blood Pressure Location Lt brachial Position Sitting Pulse 82 Pulse Source Pulse Oximeter Pulse Oximetry (%) 96 Oxygen Delivery Method Room Air Intake Visit Reasons: COPD Intake Note: pt is here as a new patient for copd, seen in hosptial 6 years ago in ICU and has been on incruse, she states she has short of breath on occasion and she cannot bend down. She has oxygen at home she uses at night on 2 or less and prn throughout the day, the heat affects her breathing very bad. Roadability Machine Operator Required: No Allergies Sulfa (Sulfonamide Antibiotics) Allergy (Verified 07/28/25 10:44) Unknown Medication List - Last Reconciled 07/28/25 by Marc Tyler MD albuterol sulfate 2.5 mg (3 mL) continuous nebulization Q6-8H PRN [[facility]-[place] PO] atropine 1% 1 drp ophthalmic (eye) BID cholecalciferol (vitamin D3) 50 mcg PO DAILY Grab bar Requires use of grab bar in shower as well as bathtub Oxygen Home Use As directed 2L prn for shortness of breath with concentrator Requires larger tank with longer duration Also needs battery powered portable tank Oxygen Home Use battery powered portable tank prednisolone acetate 1% 1 drp ophthalmic (eye) QID umeclidinium 62.5 mcg/actuation (Incruse Ellipta) 1 inh inhalation DAILY Ventolin HFA 90 mcg/actuation (albuterol sulfate) 2 puffs inhalation Q4-6H PRN NS walker As directed walker (Ultra-Light Rollator [facility]) As directed Do you need a note to return to daycare/school/sports/work: No HPI HPI COPD: Details: THIS 69 YEARS OLD FEMALE IS HERE FOR PULMONARY CONSULT AND FOLLOW-UP. SHE HAS A LONGSTANDING HISTORY OF CHRONIC OBSTRUCTIVE PULMONARY DISEASE DUE TO SMOKING. SHE HAS BEEN A LIFELONG SMOKER, AND IN THE PAST 6 YEARS SHE HAS GRADUALLY CUT THE NUMBER OF CIGARETTES DOWN CURRENTLY SMOKING ABOUT 6 CIGARETTES A DAY. SIX YEARS AGO SHE WAS ADMITTED TO INTENSIVE [facility]ARE UNIT WITH ACUTE RESPIRATORY FAILURE. OTHERWISE SHE HAS BEEN TREATED MOSTLY OUTPATIENT. SHE HAS SHORTNESS OF BREATH ON WALKING, USES O2 2 L/MINUTE RESPIRATORY DISTRESS IF SHE WALKS LONG DISTANCE. SHE DOES HAVE O2 AT HOME AND USES 2 L/MINUTE AT NIGHTTIME. SHE HAS BEEN ON INCRUSE ELLIPTA 1 INHALATION DAILY, WHICH HAS MAINTAINED. HER RESPIRATORY STATUS SHE DOES USE VENTOLIN 2 PUFFS Q 6 HOURS P.R.N. WHEN OUTDOORS AND AT HOME ALSO HAS A NEBULIZER CAN USE ALBUTEROL SOLUTION P.R.N.. 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 SHE HAS BACKACHE WHICH AFFECT HER WALKING SO SHE USES WALKER [facility] Medical History (Updated 07/28/25 @ 10:56 by Marc Tyler MD) Smoker Hypertensive retinopathy Cigarette smoker Chronic respiratory failure COPD (chronic obstructive pulmonary disease) HTN (hypertension) HLD (hyperlipidemia) Social History Patient Tobacco Use Status: Current everyday Tobacco user Cigarette Packs Per Day: 0.25 Cigarettes Per Day: 6 Review of Systems Const All systems reviewed & are unremarkable except as noted in HPI and below Eyes Reports no additional complaints ENT Reports no additional complaints Card Denies chest pain, Denies irregular heart rhythm and Denies leg edema Resp Reports as per HPI GI Reports no additional complaints Reports no additional complaints Musc Reports back pain and Reports deformity (MILD KYPHOSIS OF DORSAL SPINE) Skin/Breast Reports system reviewed and no additional complaints, except as documented Neuro Reports no additional complaints Psych Reports no additional complaints Physical Exam Vital Signs: Last Vital Signs Pulse 82 07/28/25 10:07 BP 130/72 07/28/25 10:07 Pulse Ox 96 07/28/25 10:07 Oxygen Delivery Method Room Air 07/28/25 10:07 BMI result Body Mass Index 22.9 Const General: comfortable, no acute distress, alert and awake Orientation/consciousness: patient oriented x3 HEENT Head: Yes normal to inspection General nose exam: No nasal polyps present and No nasal discharge present Face and sinus: Yes sinuses nontender Mouth: oropharynx normal Throat: Yes posterior oropharynx normal Eyes General: appearance normal, both eyes and all related structures Neck Neck: Yes normal visual inspection, Yes no lymphadenopathy, Yes trachea midline and Yes no JVD Thyroid: Thyroid normal Chest Chest palpation & inspection: normal inspection of the chest, normal palpation of entire chest wall and no tenderness Resp Other: PERCUSSION NOTE IS RESONANT BREATH SOUNDS ARE SLIGHTLY DISTANT WITH PROLONGED EXPIRATORY PHASE. NO ADVENTITIOUS SOUNDS ARE HEARD Cardio Palpation: normal PMI Rate: regular rate Rhythm: regular rhythm Heart sounds: no gallops and no murmurs GI Palpation (GI): Soft to palpation, nontender, No hepatosplenomegaly present and no masses Auscultation: normal bowel sounds Back/Spine/Pelvis Thoracic/Lumbar Spine: thoracic and lumbar spine normal to inspection and thoraco-lumbar ROM limited Skin General skin exam: no rashes or lesions noted Neuro General: patient oriented x3 and no focal motor deficits Cranial nerves: Yes CN's II-XII intact bilaterally Extrem General: Yes normal to inspection, Yes no clubbing, cyanosis or edema and Yes no calf tenderness Psych Appearance: grossly normal and well kempt Speech and movement: Normal speech and movement present Results Reviewed Results Reviewed: CHEST XRAY 09/02/24 IMPRESSION: No dominant consolidations. Minimal posterior sulcus linear atelectatic change. Assessment & Plan Assessment & Plan (1) COPD (chronic obstructive pulmonary disease): Comment: PATIENT HAS LONGSTANDING HISTORY OF CHRONIC OBSTRUCTIVE PULMONARY DISEASE SECONDARY TO HER SMOKING. SHE WAS ADMITTED IN THE HOSPITAL WITH ACUTE ON CHRONIC RESPIRATORY FAILURE ABOUT 6 YEARS AGO. . SINCE THEN HAS BEEN STABLE DOING WELL WITH HER CURRENT MEDICAL REGIMEN AT THIS TIME . Code(s): J44.9 - Chronic obstructive pulmonary disease, unspecified Category: Medical Plan: CONTINUE INCRUSE ELLIPTA. 1 INHALATION DAILY CONTINUE TO USE VENTOLIN HFA 2 PUFFS Q 6 HOURS P.R.N.. AT HOME MAY USE ALBUTEROL SOLUTION IN THE NEBULIZER. Q 6 HOURS P.R.N. PULMONARY FUNCTION TEST IS ORDERED. (2) Smoker: Comment: SHE HAS LIFELONG HISTORY OF SMOKING. HAS CUT DOWN TO 6 CIGARETTES A DAY. SHE DOES HAVE SOME SMOKING-RELATED COUGH. NOT MUCH MOTIVATED AT THIS TIME TO QUIT COMPLETELY. Code(s): F17.200 - Nicotine dependence, unspecified, uncomplicated Category: Social Hx Plan: TALKED TO HER SERIOUSLY ABOUT QUITTING SMOKING. HE DOES NOT SEEM TO BE COMING BECAUSE SHE FEELS COMFORTABLE . BY SMOKING ABOUT 6 CIGARETTES A DAY SHE IS BEING REFERRED FOR ANNUAL LUNG SCREENING PROGRAM. (3) Chronic respiratory failure: Comment: PATIENT DOES HAVE EXERCISE INDUCED HYPOXEMIA . ALSO HAS NOCTURNAL HYPOXEMIA. SHE NEEDS TO BE CHECKED FOR CO2 RETENTION Code(s): J96.10 - Chronic respiratory failure, unspecified whether with hypoxia or hypercapnia Category: Medical Plan: VENOUS BLOOD GAS STUDY. CONTINUE O2 2 L/MINUTE AT NIGHT, AND 2 L/MINUTE DURING THE DAY P.R.N. IF DOING ANY PHYSICAL EXERTION DEEP BREATHING EXERCISES WITH PURSED LIP TECHNIQUE EXPLAINED Orders: Orders PFT pulmonary function test Today F17.200 - Nicotine dependence, unspecified, uncomplicated, J44.9 - Chronic obstructive pulmonary disease, unspecified, J96.10 - Chronic respiratory failure, unspecified whether with hypoxia or hypercapnia Venous Blood Gas Today J44.9 - Chronic obstructive pulmonary disease, unspecified, J96.10 - Chronic respiratory failure, unspecified whether with hypoxia or hypercapnia Referrals Lung Cancer Screening Referral F17.200 - Nicotine dependence, unspecified, uncomplicated, J44.9 - Chronic obstructive pulmonary disease, unspecified Coding Level of Care Code New Pt Level 3 (01591) Diagnoses COPD (chronic obstructive pulmonary disease) J44.9 Smoker F17.200 Chronic respiratory failure J96.10
== END 2025-07-28 10:45 | disposition home or self-care (01) ==
LOC: HO.HPS 09:56
PROVIDERS: PCP Internal Medicine; Visit Provider Internal Medicine
DX: J44.9 Chronic obstructive pulmonary disease, unspecified (principal); F17.200 Nicotine dependence, unspecified, uncomplicated; J96.10 Chronic respiratory failure, unspecified whether with hypoxia or hypercapnia
CPT/HCPCS: 99203

== ENCOUNTER 2025-10-04 10:45 | Outpatient (REF) | payer MEDICARE, MEDICAID, SELFPAY ==
--- NOTE | 2025-10-04 10:49 | PFT_ITS ---
Indication: COPD Spirometry FEV1 to FVC 32%; FEV1 0.55 L; FVC 1.72 L. No significant response to bronchodilators noted. Lung Volumes Total lung capacity 75% predicted; residual volume 81% predicted Diffusion Capacity DLCO 46% predicted Methacholine Challenge [] Flow Volume Loops Significantly limited MVV 26% predicted Comparisons None Interpretation There is an obstructive ventilatory defect consistent with very severe COPD. No significant response to bronchodilators noted. In addition to that the patient does have a mild restrictive ventilatory defects suggesting the possibility of parenchymal disease. Severely decreased maximum voluntary ventilation likely secondary to deconditioning. There is a moderate to severe diffusion impairment secondary to likely the underlying COPD. Also likely has parenchymal lung disease. Clinical correlation warranted. MTDD
[2025-10-04 11:26] VITALS: PULSE 62
== END 2025-10-04 10:46 | disposition home or self-care (01) ==
LOC: HO.RESP 10:45
PROVIDERS: PCP Internal Medicine; Visit Provider Internal Medicine
DX: J44.9 Chronic obstructive pulmonary disease, unspecified (principal); J96.10 Chronic respiratory failure, unspecified whether with hypoxia or hypercapnia; F17.200 Nicotine dependence, unspecified, uncomplicated
CPT/HCPCS: 94060; 94640; 94727; 94729; 99212

== ENCOUNTER 2025-10-04 11:24 | Outpatient (AMB) | payer MEDICARE, MEDICAID, SELFPAY ==
[2025-10-04 11:28] VITALS: BP 120/80; PULSE 84; O2SAT 94; BMI 23.3
--- NOTE | 2025-10-04 11:28 | A.OFFVIS_ITS ---
Vital Signs 10/04/25 11:28 Height 5 ft 1 in Weight 123 lb 7.342 oz BMI 23.3 BP 120/80 Blood Pressure Location Lt brachial Position Sitting Pulse 84 Pulse Source Pulse Oximeter Pulse Oximetry (%) 94 Oxygen Delivery Method Room Air Intake Visit Reasons: COPD/PFT Follow Up Intake Note: pt is here for follow up and states the incruse is helping, just had pft and she is feeling alright. Sales Route Driver: Sales Route Driver offered & declined Allergies Sulfa (Sulfonamide Antibiotics) Allergy (Verified 10/04/25 11:52) Unknown Medication List - Last Reconciled 10/04/25 by Marc Tyler MD albuterol sulfate 2.5 mg (3 mL) continuous nebulization Q6-8H PRN [[facility]-[place] PO] atropine 1% 1 drp ophthalmic (eye) BID cholecalciferol (vitamin D3) 50 mcg PO DAILY Grab bar Requires use of grab bar in shower as well as bathtub Oxygen Home Use As directed 2L prn for shortness of breath with concentrator Requires larger tank with longer duration Also needs battery powered portable tank Oxygen Home Use battery powered portable tank prednisolone acetate 1% 1 drp ophthalmic (eye) QID umeclidinium 62.5 mcg/actuation (Incruse Ellipta) 1 inh inhalation DAILY Ventolin HFA 90 mcg/actuation (albuterol sulfate) 2 puffs inhalation Q4-6H PRN NS walker As directed walker (Ultra-Light Rollator misc) As directed Do you need a note to return to daycare/school/sports/work: No HPI HPI COPD/PFT Follow Up: Details: 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 She has lifetime history of smoking, now down to 6 cigarettes a day. She does have advanced chronic obstructive pulmonary disease. Confirmed by PFT. TEST. She claims that her breathing is stable, she gets short of breath on walking short distance if she tries to climb stairs. She does not get acute exacerbations that of. She has using Incruse. Ellipta 1 inhalation daily Does have nebulizer at home and uses albuterol solution Q 6 hours p.r.n. for acute distress, . Which does not happen every day She has O2 , stationary concentrator at home and lightweight portable unit for outdoors, but uses only if she has respiratory distress or gets short of breath when going up hill. [facility] Medical History Nicotine dependence, cigarettes, uncomplicated Hypertensive retinopathy Chronic respiratory failure COPD (chronic obstructive pulmonary disease) HTN (hypertension) HLD (hyperlipidemia) Social History Patient Tobacco Use Status: Current everyday Tobacco user Cigarette Packs Per Day: 0.25 Cigarettes Per Day: 6 Physical Exam Vital Signs: Last Vital Signs Pulse 84 10/04/25 11:28 BP 120/80 10/04/25 11:28 Pulse Ox 94 10/04/25 11:28 Oxygen Delivery Method Room Air 10/04/25 11:28 BMI result Body Mass Index 23.3 Const General: comfortable, no acute distress, alert and awake Orientation/consciousness: patient oriented x3 HEENT Head: Yes normal to inspection General nose exam: No nasal polyps present and No nasal discharge present Face and sinus: Yes sinuses nontender Mouth: oropharynx normal Throat: Yes posterior oropharynx normal Eyes General: appearance normal, both eyes and all related structures Neck Neck: Yes normal visual inspection, Yes no lymphadenopathy, Yes trachea midline and Yes no JVD Thyroid: Thyroid normal Chest Chest palpation & inspection: normal inspection of the chest, normal palpation of entire chest wall and no tenderness Resp Other: PERCUSSION NOTE IS RESONANT BREATH SOUNDS ARE SLIGHTLY DISTANT WITH PROLONGED EXPIRATORY PHASE. NO ADVENTITIOUS SOUNDS ARE HEARD Cardio Palpation: normal PMI Rate: regular rate Rhythm: regular rhythm Heart sounds: no gallops and no murmurs GI Palpation (GI): Soft to palpation, nontender, No hepatosplenomegaly present and no masses Auscultation: normal bowel sounds Back/Spine/Pelvis Thoracic/Lumbar Spine: No thoracic and lumbar spine normal to inspection (Moderate degree of dextro scoliosis) and thoraco-lumbar ROM limited Skin General skin exam: no rashes or lesions noted Neuro General: patient oriented x3 and no focal motor deficits Cranial nerves: Yes CN's II-XII intact bilaterally Extrem General: Yes normal to inspection, Yes no clubbing, cyanosis or edema and Yes no calf tenderness Psych Appearance: grossly normal and well kempt Speech and movement: Normal speech and movement present Results Reviewed Results Reviewed: Pulmonary function test performed. Today shows the following ,FVC 75% FEV1 28%. FEV1/FVC 29 FEF 25-75 13% There was no significant response to bronchodilator therapy. Assessment & Plan Assessment & Plan (1) COPD (chronic obstructive pulmonary disease): Comment: Longstanding COPD secondary to smoking. Hx Hospitalization with Acute on Chronic Respiratory Failure ~6yrs ago- since then stable on current regimen Clinically remains stable, except for shortness of breath on minimal exertion. She does walk around with a walker. Very rarely getting acute exacerbations. Code(s): J44.9 - Chronic obstructive pulmonary disease, unspecified Category: Medical Plan: CONTINUE TO USE INCRUSE ELLIPTA 1 INHALATION DAILY. ALBUTEROL SOLUTION IN THE NEBULIZER Q 6 HOURS P.R.N. FOR ACUTE DISTRESS. ALTERNATIVELY MAY USE VENTOLIN HFA 2 PUFFS Q 4-6 HOURS P.R.N. WHEN OUTDOORS. (2) Chronic respiratory failure: Comment: THIS PATIENT HAS HYPOXEMIA CAUSE BY EXERTION, ALSO DOES HAVE BASELINE HYPERCAPNIA , RESTING PCO2 67 PH 7.41 , HCO3 42 ( CHRONIC COMPENSATED RESPIRATORY FAILURE ) Code(s): J96.10 - Chronic respiratory failure, unspecified whether with hypoxia or hypercapnia Category: Medical Plan: ADVISED TO DO DEEP BREATHING EXERCISES WITH PURSED LIP TECHNIQUE, AT LEAST 3 TIMES A DAY. PATIENT GIVEN INCENTIVE SPIROMETRY DEVICE FROM THE OFFICE. ADVISED TO AVOID TAKING ANY NARCOTIC MEDICATIONS. EDUCATED ABOUT THE NATURE OF HER RESPIRATORY FAILURE. (3) Nicotine dependence, cigarettes, uncomplicated: Comment: PATIENT HAS LIFELONG HISTORY OF SMOKING, NOW DOWN TO 6 CIGARETTES A DAY Code(s): F17.210 - Nicotine dependence, cigarettes, uncomplicated Category: Medical Plan: PATIENT IS THOROUGHLY EDUCATED ABOUT THE DIAGNOSIS AND SEVERITY OF HER CHRONIC OBSTRUCTIVE PULMONARY DISEASE. IT IS DEFINITELY RELATED TO SMOKING.. AND CAN CONTINUE TO GET WORSE. ADVISED THAT SHE NEEDS TO QUIT SMOKING, AND SHOULD CUT DOWN THE NUMBER OF CIGARETTES GRADUALLY 242 AND THEN 0. PATIENT IS ADVISED TO PARTICIPATE IN ANNUAL LUNG SCREENING PROGRAM. (4) Scoliosis: Comment: PATIENT DOES HAVE CHRONIC DEXTROSCOLIOSIS. IT RESTRICTS THE MOVEMENTS OF HER SPINE AND ALSO CONTRIBUTES TO SOME RESTRICTIVE COMPONENT. Code(s): M41.9 - Scoliosis, unspecified Category: Medical Plan: SHE IS ADVISED TO KEEP ON DOING DEEP BREATHING EXERCISES AT LEAST 3 TIMES A DAY Orders: Referrals Lung Cancer Screening Referral F17.210 - Nicotine dependence, cigarettes, uncomplicated, J44.9 - Chronic obstructive pulmonary disease, unspecified Coding Level of Care Code Est Pt Level 3 (44045) Diagnoses COPD (chronic obstructive pulmonary disease) J44.9 Chronic respiratory failure J96.10 Nicotine dependence, cigarettes, uncomplicated F17.210 Scoliosis M41.9
== END 2025-10-04 11:52 | disposition home or self-care (01) ==
LOC: HO.HPS 11:24
PROVIDERS: PCP Internal Medicine; Visit Provider Internal Medicine
DX: J44.9 Chronic obstructive pulmonary disease, unspecified (principal); J96.10 Chronic respiratory failure, unspecified whether with hypoxia or hypercapnia; F17.210 Nicotine dependence, cigarettes, uncomplicated; M41.9 Scoliosis, unspecified
CPT/HCPCS: 99213

== ENCOUNTER 2025-10-21 09:58 | Outpatient (AMB) | payer MEDICARE, MEDICAID, SELFPAY ==
--- NOTE | 2025-10-21 07:57 | A.OFFVIS_ITS ---
Intake Visit Reasons: Current Smoker Allergies Sulfa (Sulfonamide Antibiotics) Allergy (Verified 10/04/25 11:52) Unknown HPI HPI Current Smoker: Details: Initial visit for this 69yo smoker with a 50PYH. Patient started smoking at age 17 for 52 years at 1+ppd. Now down to 1/4ppd. . Denies marijuana use. Denies second hand smoke exposure. Exposure to [employer] working at [employer] for 26yrs. . Denies known family history of lung cancer. Denies personal history of cancers. Denies chest CT in last year. . Denies recent travel outside the [place]. Denies recent respiratory illness or recent hospitalization for respiratory issues. Denies testing positive for COVID. Denies receiving COVID Vaccine. . Histry scoliosis and Chronic Respiratory Failure. Denies fever, chills, new/worsening cough, hemoptysis, hoarseness or dysphagia. Denies significant chest pain, significant dyspnea or unintentional weight loss. Patient Lung Cancer Screening Questionnaire reviewed with patient by provider. . Shared Decision Making Completed. Patient meets criteria. Discussed in detail with patient, the risk vs benefit of LDCT screening. Patient consents to proceed with scan. Discussed smoking cessation. PFSH Medical History (Updated 10/21/25 @ 10:31 by Jagruti Herron PA-C) Nicotine dependence, cigarettes, uncomplicated Hypertensive retinopathy Chronic respiratory failure COPD (chronic obstructive pulmonary disease) HTN (hypertension) HLD (hyperlipidemia) Surgical History (Updated 10/21/25 @ 10:25 by Jagruti Herron PA-C) History of detached retina repair Social History (Updated 10/21/25 @ 10:31 by Jagruti Herron PA-C) Patient Tobacco Use Status: Current everyday Tobacco user Cigarettes Per Day: 6 Years Smoked: (onset 17yo, 1+PPD x 52yrs, now 1/4ppd - 50pyh) Assessment & Plan Assessment & Plan (1) Nicotine dependence, cigarettes, uncomplicated: Comment: (onset 17yo, 1+PPD x 52yrs, now 1/4ppd - 50pyh) Code(s): F17.210 - Nicotine dependence, cigarettes, uncomplicated Category: Medical Plan: - SDM visit completed today in office. - Patient meets criteria for LDCT for lung cancer screening purposes and is asymptomatic. - Smoking cessation counseling offered. Patients can always call [phone]. - Will arrange for a LDCT scan of the chest for screening purposes at [facility]. - Risks, benefits, and alternatives were discussed in detail and the patient agrees to proceed. - Risks discussed include but are not limited to: radiation exposure, anxiety during testing and while awaiting results, false negatives, false positives and possibility of additional intervention such as further imaging or surgical procedures for benign disease. - Benefits are obviously detection of lung cancer at an early stage which can lead to improved outcomes. - Discussed the importance of screening program compliance with adherence to yearly LDCT scan as scheduled - or sooner interval scans for personalized screen ing regimen. - Discussed follow up plan. Our office will send a letter discussing results and if needed set up phone call and office visit based on CT findings. - Patient educated on results categorization and the management decisions for suspicious findings potentially found on the screening LDCT scan. Any patient with a Lung RADS score of 3 or 4 will be reviewed by a multidisciplinary team at [facility] to form a plan of action in regards to scan findings. - If further work up is warranted for a suspicious lung finding this will be followed by the Lung Cancer Screening program in conjunction with the Thoracic Surgery Department at [facility]. - A copy of the office note and LDCT will be sent to the patient's PCP - as well as documentation on any associated further plans of care. - Incidental findings on LDCT are the PCP's responsibility. These findings are indicated with an S finding on the LDCT Assessment. A note discussing the findings will be sent to the PCP who is then responsible for further management. - All questions answered.? Coding Level of Care Code Lung Cancer Screening [id number] Diagnoses Nicotine dependence, cigarettes, uncomplicated F17.210
== END 2025-10-21 10:37 | disposition home or self-care (01) ==
LOC: HO.HPS 09:59
PROVIDERS: PCP Internal Medicine; Referring Provider Internal Medicine; Visit Provider Physician Assistant Medical
DX: F17.210 Nicotine dependence, cigarettes, uncomplicated (principal)
CPT/HCPCS: G0296

== ENCOUNTER 2025-10-21 10:33 | Outpatient (REF) | payer MEDICARE, MEDICAID, SELFPAY ==
--- NOTE | ~2025-10-21 | CT_ITS ---
EXAMINATION: CT LUNG SCREENING HISTORY: F17.210 - Nicotine dependence, cigarettes, uncomplicated TECHNIQUE: Low dose axial images were obtained from the sternal notch to upper abdomen without IV contrast per standard departmental protocol. Sagittal and coronal reformatted images were also obtained and reviewed. One or more of the following techniques was used for dose reduction: Automated exposure control, adjustment of the mA and/or kV according to patient size, use of iterative reconstruction technique. DLP: 39 mGy-cm COMPARISON: Comparison is made with the prior examination dated 01/05/2014. FINDINGS: Lung nodules: No pulmonary nodules are identified. There is right apical pleural and parenchymal scarring. Emphysema: moderate Coronary Calcification: none Aortic Arch Calcification: mild Potentially Significant Incidentals : none Additional Chest Findings: There is no pleural or pericardial effusion. No mediastinal or axillary lymphadenopathy is identified. There is moderate levoscoliosis of the spine. Visualized upper abdomen: The visualized portions of the liver, spleen, and adrenals have an unremarkable unenhanced appearance. CT/CT lung screening IMPRESSION: No suspicious pulmonary nodules are identified. LUNG-RADS ASSESSMENT: Lung-RADS 1: Negative MANAGEMENT: Continue annual screening with LDCT in 12 months Category S: N/A Electronically signed by: Jimbo Demarco MD 10/21/2025 11:05 AM [facility]
== END 2025-10-21 10:34 | disposition home or self-care (01) ==
LOC: HO.CT 10:33
PROVIDERS: PCP Internal Medicine; Visit Provider Physician Assistant Medical
DX: Z12.2 Encounter for screening for malignant neoplasm of respiratory organs (principal); F17.210 Nicotine dependence, cigarettes, uncomplicated
CPT/HCPCS: 71271; G0296

== ENCOUNTER → 2025-10-21 10:35 | Outpatient (BNV) | payer MEDICARE, MEDICAID, SELFPAY | PROVIDERS: PCP Internal Medicine; Visit Provider Radiology Diagnostic Radiology | DX: F17.210 Nicotine dependence, cigarettes, uncomplicated (principal) | CPT/HCPCS: 71271 ==